=== PATIENT | male | born 1960 | race Caucasian/White ===

== ENCOUNTER 2024-05-25 14:10 | Emergency (ER) | payer BC ==
[~2024-05-25] VITALS: Ht 190.5 cm; Wt 102.0 kg
[2024-05-25 15:08] VITALS: PULSE 102; RESP 18; O2SAT 91
[2024-05-25] MEDS: ipratropium/albuterol 3ml nebule NEB ONE (15:08)
[2024-05-25 15:14] LABS: BASOPHILS % (AUTO) 0.2 % (0-1); EOSINOPHILS % (AUTO) 0 % (0-6); HEMATOCRIT 28.8 % (42.0-52.0); HEMOGLOBIN 9.8 g/dl (14.0-17.9); LYMPHOCYTES # (AUTO) 0.6 X10'3 (1.1-4.8); LYMPHOCYTES % (AUTO) 11.3 % (21-51); MEAN CORPUSCULAR HEMOGLOBIN 29.9 PG (27.0-31.0); MEAN CORPUSCULAR VOLUME 87.9 FL (78-98); MEAN PLATELET VOLUME 8.7 FL (7.4-10.4); MONOCYTES # (AUTO) 0.6 X10'3 (0-0.9); MONOCYTES % (AUTO) 11.1 % (2-12); NEUTROPHILS # (AUTO) 3.8 X10'3 (1.8-7.7); NEUTROPHILS % (AUTO) 77.4 % (42-75); PLATELET COUNT 202 X10'3 (140-440); RED BLOOD COUNT 3.27 X10'6 (4.70-6.10)
[2024-05-25 15:18] VITALS: PULSE 92; RESP 18; O2SAT 96
[2024-05-25 15:23] LABS: ALBUMIN 2.8 G/DL (3.4-5.0); ANION GAP 7 (8-16); BLOOD UREA NITROGEN 31 MG/DL (7-18); BUN/CREATININE RATIO 18.5 (10.0-20.0); CALCIUM 7.8 MG/DL (8.5-10.1); CHLORIDE 100 MMOL/L (99-107); CREATININE 1.68 MG/DL (0.60-1.10); GLUCOSE 227 MG/DL (70-104); PRO BRAIN NATRIURETIC PEPTIDE 1120 PG/ML (0-125); SODIUM 137 MMOL/L (135-145); eCRCL 54 ML/MIN; eGFR 41 ML/MIN
[2024-05-25] MEDS ORDERED: BENZ-38 PO (17:00)
[2024-05-25] MEDS ORDERED: IBUP-862 PO (17:00)
[2024-05-25] MEDS ORDERED: TAM75C PO (17:00)
[2024-05-25] MEDS ORDERED: ALBU8HFA INH (17:00)
[2024-05-25 17:32] VITALS: BP 126/72; PULSE 78; RESP 18; TEMP 99.2; O2SAT 90
== END 2024-05-25 17:35 | disposition home or self-care (01) ==
LOC: ER 14:11
DX: J11.1 Influenza due to unidentified influenza virus with other respiratory manifestations (principal); Z20.822 Contact with and (suspected) exposure to COVID-19; Z88.0 Allergy status to penicillin
CPT/HCPCS: 36415; 71045; 80048; 82948; 83605; 83880; 85025; 87040; 87502; 87503; 87811; 94640; 94760; 99284